=== PATIENT | female | born 1970 | race Caucasian/White ===

== ENCOUNTER 2019-04-06 17:55 | Emergency (ER) | payer MEDICAID ==
[~2019-04-06] VITALS: Ht 152.4 cm; Wt 61.5 kg
[~2019-04-06 17:55] MED LIST: ALBU18HF INH; CEFD300C37 PO; CLON0.5T20 PO; HYDR-3237 PO; HYDR-3240 PO; MOME13HF4 INH; ONDA4TAB10 PO; SUMA50TA3 PO; VENL150C PO
[2019-04-06 17:57] VITALS: BP 158/95
== END 2019-04-06 18:20 | disposition home or self-care (01) ==
LOC: ED 18:15
DX: K02.9 Dental caries, unspecified (principal); J44.9 Chronic obstructive pulmonary disease, unspecified; F17.200 Nicotine dependence, unspecified, uncomplicated; Z72.89 Other problems related to lifestyle
CPT/HCPCS: 99283